=== PATIENT | female | born 1970 | race Caucasian/White ===

== ENCOUNTER → 2021-01-13 | Day surgery (SDC) | payer OTHER ==
[~2021-01-13] MED LIST: BUTALB-ACETAMI1 EAC1 PO; CBD OIL; DULOXETINE HCL30 MG PO; GABAPENTIN300 MG PO; IBUPROFEN600 MG PO; IBUPROFEN800 MG PO; ONE DAILY ESSE1 EACH PO; PREDNISONE 50 M50 MG PO; PROTONIX 40 MG40 M1 PO; QUETIAPINE FUMA25 MG PO; TIZANIDINE HCL4 MG PO
== END | disposition home or self-care (01) ==
LOC: OR 06:37
PROVIDERS: Internal Medicine Gastroenterology
PROC: 0DJD8ZZ Inspection of Lower Intestinal Tract, Via Natural or Artificial Opening Endoscopic (ICD-10-PCS; 2021-01-13)
PROC: 0DB68ZX Excision of Stomach, Via Natural or Artificial Opening Endoscopic, Diagnostic (ICD-10-PCS; principal; 2021-01-13 10:25)
PROC: 0DB78ZX Excision of Stomach, Pylorus, Via Natural or Artificial Opening Endoscopic, Diagnostic (ICD-10-PCS; 2021-01-13 10:25)
DX: K25.9 Gastric ulcer, unspecified as acute or chronic, without hemorrhage or perforation (principal); K31.89 Other diseases of stomach and duodenum; K29.70 Gastritis, unspecified, without bleeding; K64.1 Second degree hemorrhoids; K21.9 Gastro-esophageal reflux disease without esophagitis; G25.81 Restless legs syndrome; F17.210 Nicotine dependence, cigarettes, uncomplicated; R63.6 Underweight; Z12.11 Encounter for screening for malignant neoplasm of colon; Z68.1 Body mass index [BMI] 19.9 or less, adult; Z20.822 Contact with and (suspected) exposure to COVID-19; Z79.891 Long term (current) use of opiate analgesic; Z79.899 Other long term (current) drug therapy; Z88.0 Allergy status to penicillin; Z88.1 Allergy status to other antibiotic agents
CPT/HCPCS: J2001; J2704; J7040

== ENCOUNTER → 2021-02-22 | Outpatient (CLI) | payer OTHER | LOC: US 02-19 08:00 | DX: R94.5 Abnormal results of liver function studies (principal); N28.1 Cyst of kidney, acquired | CPT/HCPCS: 36415; 76705; 80076; 82150; 83690 ==